=== PATIENT | male | born 1995 | race Caucasian/White ===

== ENCOUNTER 2018-01-03 21:36 | Emergency (ER) | payer BC, OTHER ==
[~2018-01-03] VITALS: Ht 185.4 cm; Wt 102.0 kg
[~2018-01-03 21:36] MED LIST: LORT5TAB PO; PENVK500 PO
[2018-01-03 21:39] VITALS: BP 165/79; PULSE 107; RESP 16; TEMP 99.3; O2SAT 100
[2018-01-03] MEDS ORDERED: SODIUM CHLOR 0.9% 1000 ML INJ 1,000 ML IV ONE (22:01)
--- NOTE | 2018-01-03 22:10 | PD ---
HPI Chief Complaint: Headache Time Seen by Provider: 21:59 Travel History International Travel<30 days: No Contact w/Intl Traveler<30days: No Traveled to known affect area: No History of Present Illness HPI Patient is a 22-year-old male presenting to the emergency department for evaluation of a headache. Patient states he has a history of migraines, pain is consistent with prior however it feels more intense. He reports his pain is a 10 out of 10, it is aching and throbbing. Patient reported that when he woke up this morning and took his temperature and it was 102. Patient reports a history of stiff necks, he states his neck is more stiff today than it normally is. He also reports double vision, nausea and vomiting once today. Symptoms apparently is moderate, onset was gradual, there are no alleviating factors. Patient normally takes Percocet 10 mg times a day as needed for his headaches as well as diazepam and none of this is helping his symptoms. 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 no surgery) Psychiatric: Yes (hx add) Immunizations Current: Yes Tetanus Vaccination: < 5 Years Influenza Vaccination: No Past Surgical History Surgical History: No Previous Surgery Other Surgery: No Social History Alcohol Use: No Tobacco Use: No Substance Use: No Allergies-Medications (Allergen,Severity, Reaction): Coded Allergies: No Known Allergies (Verified Adverse Reaction, Unknown, 01/03/18) Reported Meds & Prescriptions Reported Meds & Active Scripts Active Reported Penicillin V Potassium 500 Mg Tab 500 Mg PO TID 7 Days Lortab 5/500 (Acetaminophen/Hydrocodone Bitart) 5 Mg/500 Mg Tab 1 Tab PO FOR PAIN Review of Systems Except as stated in HPI: all other systems reviewed are Neg General / Constitutional: Positive: Fever Eyes: Positive: Blurred Vision HENT: Positive: Headaches, Neck Stiffness Cardiovascular: No: Chest Pain or Discomfort Respiratory: No: Cough, Shortness of Breath Gastrointestinal: Positive: Nausea, Vomiting, No: Abdominal Pain Musculoskeletal: No: Myalgias Neurologic: Positive: Headache, No: Weakness, Dizziness, Syncope, Focal Abnormalities, Change in Mentation Physical Exam Narrative GENERAL: Well-developed, well-nourished, alert male. Presenting in no acute distress. SKIN: Warm and dry. HEAD: Atraumatic. Normocephalic. EYES: Pupils equal and round. No scleral icterus. No injection or drainage. Extraocular movements are intact. ENT: No nasal bleeding or discharge. Mucous membranes pink and moist. NECK: Trachea midline. No JVD. No meningeal signs noted. CARDIOVASCULAR: Regular rate and rhythm. RESPIRATORY: No accessory muscle use. Clear to auscultation. Breath sounds equal bilaterally. GASTROINTESTINAL: Abdomen soft, non-tender, nondistended. Hepatic and splenic margins not palpable. MUSCULOSKELETAL: Extremities without clubbing, cyanosis, or edema. No obvious deformities. NEUROLOGICAL: Awake and alert. No obvious cranial nerve deficits. Motor grossly within normal limits. Five out of 5 muscle strength in the arms and legs. Normal speech. PSYCHIATRIC: Appropriate mood and affect; insight and judgment normal. Data Data Last Documented VS Vital Signs Date Time Temp Pulse Resp B/P (MAP) Pulse Ox O2 Delivery O2 Flow Rate FiO2 01/03/18 21:51 100 01/03/18 21:39 99.3 107 16 165/79 (107) Room Air Orders Orders Ct Brain W/O Iv Contrast(Rout) (01/03/18 22:01) Ecg Monitoring (01/03/18 22:01) Iv Access Insert/Monitor (01/03/18 22:01) Sodium Chloride 0.9% Flush (Ns Flush) (01/03/18 22:15) Ketorolac Inj (Toradol Inj) (01/03/18 22:15) Prochlorperazine Inj (Compazine Inj) (01/03/18 22:15) Diphenhydramine Inj (Benadryl Inj) (01/03/18 22:15) Sodium Chlor 0.9% 1000 Ml Inj (Ns 1000 M (01/03/18 22:01) Influenzae A/B Antigen (01/03/18 22:01) MDM Medical Decision Making Medical Screen Exam Complete: Yes Emergency Medical Condition: Yes Interpretation(s) Vital Signs Date Time Temp Pulse Resp B/P (MAP) Pulse Ox O2 Delivery O2 Flow Rate FiO2 01/03/18 21:51 100 01/03/18 21:39 99.3 107 16 165/79 (107) 100 Room Air Differential Diagnosis Migraine versus tension-type headache versus influenza versus less likely meningitis versus other Narrative Course Patient is 22-year-old well-appearing male presenting for evaluation of a fever as well as a headache with neck stiffness. The headache and neck stiffness are chronic in nature. Patient is being treated by a neurologist for migraines. He normally takes Percocet 08/20/25's for his pain, he states today it is not helping, additionally he reported double vision. Patient has no focal deficits noted on exam, there are no meningeal signs. Patient has not had any medication over 6 hours, he is currently afebrile. Will obtain a CT scan of the brain, medications were ordered for pain. We'll also check influenza due to patient's report of a fever this morning. Patient will be discharged home if the CT scan of the brain is normal. If influenza result is positive he'll be treated for such. Care of patient transferred to Dr. Jameson my attending physician at the end of my shift. He will determine patient's disposition. Olga Galan Jan 03, 2018 22:10
[2018-01-03] MEDS ORDERED: PROCHLORPERAZINE INJ 10 MG/2 ML VIAL IVP ONE (22:15)
[2018-01-03] MEDS ORDERED: KETOROLAC TROMETHAMINE 30 MG/ML (IVP) VIAL IVP ONE (22:15)
[2018-01-03] MEDS ORDERED: diphenhydrAMINE HCL 50 MG/ML VIAL IVP ONE (22:15)
[2018-01-03] MEDS ORDERED: SODIUM CHLORIDE 0.9% FLUSH 10 ML FLUSH IVF PRN (22:15)
--- NOTE | 2018-01-03 22:56 | RADRPT ---
EXAM DATE/TIME: 01/03/2018 22:44 [facility] COMPARISON: No previous studies available for comparison. INDICATIONS : Headache, double vision and fever; rule out subarachnoid hemorrhage. RADIATION DOSE: 40.98 CTDIvol (mGy) MEDICAL HISTORY : None SURGICAL HISTORY : None. ENCOUNTER: Initial ACUITY: 1 day PAIN SCALE: 7/10 LOCATION: cranial TECHNIQUE: Multiple contiguous axial images were obtained of the head. Using automated exposure control and adj ustment of the mA and/or kV according to patient size, radiation dose was kept as low as reasonably a chievable to obtain optimal diagnostic quality images. DICOM format image data is available electro nically for review and comparison. FINDINGS: There is no evidence for intracranial hemorrhage, mass effect, mass lesions, edema, or extra-axial fl uid collections. The visualized bony structures appear intact. The ventricles are normal size for t he patient's age. There are no signs of acute infarction for technique. There is a left maxillary si nus moderate mucoperiosteal thickening within the left eithmoid air cells. CONCLUSION: Chronic sinusitis worse involving the left maxillary sinus. Jose Jacob MD on January 03, 2018 at 22:51 Board Certified Radiologist. This report was verified electronically.
[2018-01-03 23:51] VITALS: BP 119/70; PULSE 79; RESP 18; O2SAT 97
--- NOTE | 2018-01-04 00:07 | PD ---
Physical Exam Date Seen by Provider: Jan 04, 2018 Time Seen by Provider: 00:[address] of head is negative patient will be given 1 Furacin one tramadol and discharged follow-up as an outpatient with his neurologist Data Data Last Documented VS Vital Signs Date Time Temp Pulse Resp B/P (MAP) Pulse Ox O2 Delivery O2 Flow Rate FiO2 01/04/18 01:01 01/04/18 00:51 75 18 99 01/03/18 21:39 99.3 Room Air Orders Orders Ct Brain W/O Iv Contrast(Rout) (01/03/18 22:01) Ecg Monitoring (01/03/18 22:01) Iv Access Insert/Monitor (01/03/18 22:01) Sodium Chloride 0.9% Flush (Ns Flush) (01/03/18 22:15) Ketorolac Inj (Toradol Inj) (01/03/18 22:15) Prochlorperazine Inj (Compazine Inj) (01/03/18 22:15) Diphenhydramine Inj (Benadryl Inj) (01/03/18 22:15) Sodium Chlor 0.9% 1000 Ml Inj (Ns 1000 M (01/03/18 22:01) Influenzae A/B Antigen (01/03/18 22:01) Ofji-Ahmnw-Rccn 325-50-40 Mg (Fioricet 3 (01/04/18 00:15) Tramadol (Ultram) (01/04/18 00:15) Ed Discharge Order (01/04/18 00:07) MDM Medical Record Reviewed: Yes Supervised Visit with JOSE: Yes Diagnosis Primary Impression: Headache Qualified Codes: G44.209 - Tension-type headache, unspecified, not intractable Patient Instructions: Acute Headache (ED), General Instructions Disposition: 01 DISCHARGE HOME Condition: Shahab Soares MD Jan 04, 2018 00:07
[2018-01-04] MEDS ORDERED: ACETAMIN 325 MG/BUTALBITAL 50 MG/CAFFEINE 40 MG TAB PO ONE (00:15)
[2018-01-04] MEDS ORDERED: traMADol HCL 50 MG TAB PO ONE (00:15)
[2018-01-04 00:51] VITALS: BP 113/59; PULSE 75; RESP 18; O2SAT 99
== END 2018-01-04 01:02 | disposition home or self-care (01) ==
LOC: NEPE 21:36
DX: G44.209 Tension-type headache, unspecified, not intractable (principal)
CPT/HCPCS: 70450; 87804; 96361; 96374; 96375; 99284; J0780; J1200; J1885; J7030